=== PATIENT | male | born 1990 | race Caucasian/White ===

== ENCOUNTER 2021-08-09 20:07 | Emergency (ER) | payer MEDICAID ==
[~2021-08-09] VITALS: Ht 175.3 cm; Wt 77.0 kg
[2021-08-09 20:12] VITALS: BP 123/78
[2021-08-09] MEDS ORDERED: IBUPROFEN 600MG TABLET PO STA (20:35)
[2021-08-09] MEDS ORDERED: SODIUM CHLORIDE 0.9% 1,000 ML IV ONE (20:45)
== END 2021-08-10 00:12 | disposition left against medical advice (07) ==
LOC: ER 20:07
DX: Z53.21 Procedure and treatment not carried out due to patient leaving prior to being seen by health care provider (principal)
CPT/HCPCS: 71045; 82962; J7030; 99283